=== PATIENT | male | born 1965 | race Two or more races ===

== ENCOUNTER → 2017-09-29 | Outpatient (REF) | payer OTHER ==
[2017-09-29 11:50] LABS: MEAN CORPUSCULAR HEMOGLOBIN 30.4 pg (27.0-33.0); MEAN CORPUSCULAR HGB CONC 33.5 g/dl (32.0-36.5); MEAN CORPUSCULAR VOLUME 90.7 fl (80.0-96.0); PLATELET COUNT, AUTOMATED 269 10^3/uL (150-450); RED CELL DISTRIBUTION WIDTH 11.9 % (11.5-14.5); WHITE BLOOD COUNT 8.3 10^3/uL (4.0-10.0)
[2017-09-29 13:05] LABS: ALBUMIN 3.9 GM/DL (3.2-5.2); ALBUMIN/GLOBULIN RATIO 1.08 (1.00-1.93); ALKALINE PHOSPHATASE 104 U/L (45-117); ALT/SGPT 22 U/L (12-78); ANION GAP 7 MEQ/L (8-16); AST/SGOT 19 U/L (7-37); BILIRUBIN,TOTAL 0.4 MG/DL (0.2-1.0); BLOOD UREA NITROGEN 15 MG/DL (7-18); CALCIUM LEVEL 9.2 MG/DL (8.5-10.1); CARBON DIOXIDE LEVEL 27 MEQ/L (21-32); CHLORIDE LEVEL 106 MEQ/L (98-107); CHOLESTEROL LEVEL 193 MG/DL (<200); CREATININE FOR GFR 0.97 MG/DL (0.70-1.30); GLOMERULAR FILTRATION RATE > 60.0 (>56); GLUCOSE, FASTING 75 MG/DL (70-105); POTASSIUM SERUM 4.5 MEQ/L (3.5-5.1); SODIUM LEVEL 140 MEQ/L (136-145); TOTAL PROTEIN 7.5 GM/DL (6.4-8.2); TRIGLYCERIDES LEVEL 165 MG/DL (<150)
== END ==
LOC: M SFHCPLAZ 10:22
PROVIDERS: ATTEND Nurse Practitioner Adult Health
DX: Z00.00 Encounter for general adult medical examination without abnormal findings (principal); Z12.5 Encounter for screening for malignant neoplasm of prostate

== ENCOUNTER → 2017-10-24 | Outpatient (CLI) | payer OTHER ==
[~2017-10-24] MED LIST: PROHANCE 279.3MG/ML 15ML VIAL (A9576) As Ordered
== END ==
LOC: M RAD 16:21
DX: G44.209 Tension-type headache, unspecified, not intractable (principal)
CPT/HCPCS: A9576

== ENCOUNTER 2018-02-15 12:34 | Emergency (ER) | payer OTHER, SELFPAY ==
[2018-02-15] MEDS: ONDANSETRON 4MG/2ML VIAL (J2405) IV ×3 (13:15)
[2018-02-15 13:24] LABS: BASO % 0.6 % (0.0-1.0); EOS # 0.2 10^3/uL (0.0-0.50); HEMATOCRIT 49.5 % (42.0-52.0); HEMOGLOBIN 16.9 g/dl (13.5-17.5); IMMATURE GRANULOCYTE % 0.2 % (0-3.0); LYMPH # 1.7 10^3/uL (1.5-4.5); LYMPH % 25.2 % (24.0-44.0); MEAN CORPUSCULAR HEMOGLOBIN 30.3 pg (27.0-33.0); MEAN CORPUSCULAR HGB CONC 34.1 g/dl (32.0-36.5); MEAN CORPUSCULAR VOLUME 88.9 fl (80.0-96.0); MONO # 0.3 10^3/uL (0.0-0.8); MONO % 4.8 % (0.0-5.0); NEUTROPHILS # 4.4 10^3/uL (1.8-7.7); NEUTROPHILS % 66.2 % (36.0-66.0); PLATELET COUNT, AUTOMATED 232 10^3/uL (150-450); RED BLOOD COUNT 5.57 10^6/uL (4.30-6.10); RED CELL DISTRIBUTION WIDTH 12.1 % (11.5-14.5); WHITE BLOOD COUNT 6.7 10^3/uL (4.0-10.0)
[2018-02-15 13:35] LABS: INR 1.06
[2018-02-15 13:36] LABS: PARTIAL THROMBOPLASTIN TIME 28.8 SECONDS (26.8-37.9)
[2018-02-15 13:53] LABS: ALBUMIN 3.7 GM/DL (3.2-5.2); ALKALINE PHOSPHATASE 202 U/L (45-117); ALT/SGPT 755 U/L (12-78); ANION GAP 6 MEQ/L (8-16); AST/SGOT 368 U/L (7-37); BILIRUBIN,DIRECT 0.3 MG/DL (0.0-0.2); BILIRUBIN,TOTAL 0.9 MG/DL (0.2-1.0); BLOOD UREA NITROGEN 15 MG/DL (7-18); CALCIUM LEVEL 8.6 MG/DL (8.5-10.1); CARBON DIOXIDE LEVEL 28 MEQ/L (21-32); CHLORIDE LEVEL 107 MEQ/L (98-107); CK-MB VALUE MASS < 1.0 NG/ML (<3.6); CPK CREATINE PHOSPHOKINASE 140 U/L (39-308); CREATININE FOR GFR 0.99 MG/DL (0.70-1.30); GLOMERULAR FILTRATION RATE > 60.0 (>56); GLUCOSE, FASTING 145 MG/DL (70-100); LIPASE 255 U/L (73-393); MB/CK RELATIVE INDEX 0.71 (< OR =4); POTASSIUM SERUM 3.8 MEQ/L (3.5-5.1); SODIUM LEVEL 141 MEQ/L (136-145); TOTAL PROTEIN 7.8 GM/DL (6.4-8.2); TROPONIN I < 0.02 NG/ML (< 0.10)
[2018-02-16 10:20] LABS: HEPATITIS B SURFACE ANTIGEN NEGATIVE (NEGATIVE)
[2018-02-16 10:46] LABS: HEPATITIS C VIRUS ABY INDEX < 0.0 INDEX (<0.8)
[2018-02-16 10:47] LABS: HEPATITIS B CORE ANTIBODY IGM NEGATIVE (NEGATIVE)
[2018-02-16 10:49] LABS: HEPATITIS A ANTIBODY IGM NEGATIVE (NEGATIVE)
== END 2018-02-15 16:54 | disposition home or self-care (01) ==
LOC: M ED 12:34
DX: K75.9 Inflammatory liver disease, unspecified (principal); R10.13 Epigastric pain; R91.8 Other nonspecific abnormal finding of lung field; F17.200 Nicotine dependence, unspecified, uncomplicated; Z82.49 Family history of ischemic heart disease and other diseases of the circulatory system
CPT/HCPCS: 71046

== ENCOUNTER → 2018-02-19 | Outpatient (REF) | payer SELFPAY, OTHER ==
[2018-02-19 13:07] LABS: ALBUMIN 4.1 GM/DL (3.2-5.2); ALBUMIN/GLOBULIN RATIO 1.17 (1.00-1.93); ALKALINE PHOSPHATASE 153 U/L (45-117); ALT/SGPT 282 U/L (12-78); ANION GAP 5 MEQ/L (8-16); AST/SGOT 73 U/L (7-37); BILIRUBIN,TOTAL 0.5 MG/DL (0.2-1.0); BLOOD UREA NITROGEN 19 MG/DL (7-18); CARBON DIOXIDE LEVEL 27 MEQ/L (21-32); CHLORIDE LEVEL 107 MEQ/L (98-107); CREATININE FOR GFR 0.97 MG/DL (0.70-1.30); GLOMERULAR FILTRATION RATE > 60.0 (>56); GLUCOSE, FASTING 82 MG/DL (70-100); POTASSIUM SERUM 4.2 MEQ/L (3.5-5.1); SODIUM LEVEL 139 MEQ/L (136-145); TOTAL PROTEIN 7.6 GM/DL (6.4-8.2)
== END ==
LOC: M SFHCPLAZ 08:45
DX: R74.0 Nonspecific elevation of levels of transaminase and lactic acid dehydrogenase [LDH] (principal)
CPT/HCPCS: 80053

== ENCOUNTER → 2018-02-26 | Outpatient (CLI) | payer SELFPAY, OTHER ==
[2018-02-26 09:55] LABS: ALBUMIN 3.7 GM/DL (3.2-5.2); ALBUMIN/GLOBULIN RATIO 1.09 (1.00-1.93); ALKALINE PHOSPHATASE 112 U/L (45-117); ALT/SGPT 62 U/L (12-78); ANION GAP 6 MEQ/L (8-16); AST/SGOT 24 U/L (7-37); BILIRUBIN,TOTAL 0.6 MG/DL (0.2-1.0); BLOOD UREA NITROGEN 16 MG/DL (7-18); CALCIUM LEVEL 8.6 MG/DL (8.5-10.1); CARBON DIOXIDE LEVEL 28 MEQ/L (21-32); CHLORIDE LEVEL 108 MEQ/L (98-107); CREATININE FOR GFR 1.07 MG/DL (0.70-1.30); GLOMERULAR FILTRATION RATE > 60.0 (>56); GLUCOSE, FASTING 152 MG/DL (70-100); POTASSIUM SERUM 3.7 MEQ/L (3.5-5.1); SODIUM LEVEL 142 MEQ/L (136-145); TOTAL PROTEIN 7.1 GM/DL (6.4-8.2)
== END ==
LOC: M LAB 08:41
DX: R74.0 Nonspecific elevation of levels of transaminase and lactic acid dehydrogenase [LDH] (principal)
CPT/HCPCS: 80053

== ENCOUNTER 2019-11-23 15:04 | Emergency (ER) | payer SELFPAY ==
[~2019-11-23] VITALS: Ht 177.8 cm; Wt 91.6 kg
[2019-11-23] MEDS ORDERED: ibuprofen 800 (15:17)
[2019-11-23 15:51] LABS: BASO % 0.4 % (0.0-1.0); EOS # 0.1 10^3/uL (0.0-0.5); EOS % 1.3 % (0.0-3.0); HEMATOCRIT 47.7 % (42.0-52.0); HEMOGLOBIN 15.8 g/dl (13.5-17.5); LYMPH # 1.3 10^3/uL (1.5-5.0); LYMPH % 14.7 % (24.0-44.0); MEAN CORPUSCULAR HEMOGLOBIN 30.3 pg (27.0-33.0); MEAN CORPUSCULAR HGB CONC 33.1 g/dl (32.0-36.5); MEAN CORPUSCULAR VOLUME 91.6 fl (80.0-96.0); MONO # 0.7 10^3/uL (0.0-0.8); NEUTROPHILS # 6.4 10^3/uL (1.5-8.5); NEUTROPHILS % 75.2 % (36.0-66.0); PLATELET COUNT, AUTOMATED 196 10^3/uL (150-450); RED BLOOD COUNT 5.21 10^6/uL (4.30-6.10); WHITE BLOOD COUNT 8.5 10^3/uL (4.0-10.0)
[2019-11-23 16:23] LABS: ALBUMIN 3.6 GM/DL (3.2-5.2); ALT/SGPT 18 U/L (12-78); BILIRUBIN,DIRECT 0.1 MG/DL (0.0-0.2); BILIRUBIN,TOTAL 0.6 MG/DL (0.2-1.0); BLOOD UREA NITROGEN 15 MG/DL (7-18); CALCIUM LEVEL 8.7 MG/DL (8.5-10.1); CARBON DIOXIDE LEVEL 29 MEQ/L (21-32); CHLORIDE LEVEL 108 MEQ/L (98-107); CREATININE FOR GFR 1.05 MG/DL (0.70-1.30); GLOMERULAR FILTRATION RATE > 60.0 (>56); GLUCOSE, FASTING 96 MG/DL (70-100); LIPASE 583 U/L (73-393); POTASSIUM SERUM 4.1 MEQ/L (3.5-5.1); SODIUM LEVEL 142 MEQ/L (136-145); TOTAL PROTEIN 7.1 GM/DL (6.4-8.2)
[2019-11-23] MEDS ORDERED: NS 1,000 ML IV ONE (19:15)
[2019-11-23] MEDS ORDERED: ONDANSETRON 4MG/2ML VIAL (J2405) IV ONE (19:15)
[2019-11-23] MEDS ORDERED: MORPHINE 4 MG/ML 1ML VIAL/SYRINGE (J2270) IV ONE (19:15)
--- NOTE | 2019-11-23 20:37 | REPVR ---
PROCEDURE INFORMATION: Exam: CT Abdomen And Pelvis Without Contrast Exam date and time: 11/23/2019 7:30 PM Age: 54 years old Clinical indication: Abdominal pain; Localized; Right lower quadrant (rlq); Additional info: Rlq pain appi vs calc TECHNIQUE: Imaging protocol: Computed tomography of the abdomen and pelvis without contrast. Radiation optimization: All CT scans at this facility use at least one of these dose optimization techniques: automated exposure control; mA and/or kV adjustment per patient size (includes targeted exams where dose is matched to clinical indication); or iterative reconstruction. COMPARISON: GALLBLADDER US 02/15/2018 1:44 PM FINDINGS: Liver: There are no focal liver lesions present. Gallbladder and bile ducts: There is a 4 mm stone in the gallbladder neck. Pancreas: The pancreas is normal. Spleen: The spleen is normal. Adrenals: The adrenal glands are normal. Kidneys and ureters: The kidneys are normal. Stomach and bowel: There is no evidence of intestinal obstruction. Diverticulosis throughout the colon with inflammation surrounding the cecum and ascending colon which may be due to diverticulitis. There is stranding in the adjacent mesentery. Appendix: A normal appendix is identified. Intraperitoneal space: See Stomach And Bowel Finding. Vasculature: There is no evidence of an abdominal aortic aneurysm. The vasculature demonstrates diffuse mild atherosclerotic calcification. Lymph nodes: Unremarkable. No enlarged lymph nodes. Bladder: The bladder is unremarkable. Reproductive: Unremarkable as visualized. Bones/joints: Unremarkable. No acute fracture. Soft tissues: Fat containing left inguinal hernia. IMPRESSION: 1. Inflammation surrounding the diverticula in the proximal ascending colon and cecal region most likely due to diverticulitis however underlying carcinoma is not excluded therefore suggest follow-up exam. There are small adjacent mesenteric lymph nodes measuring up to 1 cm. There is no associated abscess or perforation. 2. There is a 4 mm stone in the gallbladder neck. Electronically signed by: Lisa Fairbanks On 11/23/2019 20:30:24 PM
[2019-11-23] MEDS ORDERED: CIPR-249 PO (20:53)
[2019-11-23] MEDS ORDERED: FLAG500T PO (20:53)
[2019-11-23] MEDS ORDERED: NORC1TAB7 PO (20:53)
[2019-11-23] MEDS ORDERED: metroNIDAZOLE (FLAGYL) 500 MG TAB PO ONE (21:00)
[2019-11-23] MEDS ORDERED: NORCO 5/325MG TABLET (BULK FOR ED) PO ONE (21:00)
[2019-11-23] MEDS ORDERED: CIPROFLOXACIN 500 MG TAB PO ONE (21:00)
[2019-11-23 21:15] VITALS: BP 148/78
--- NOTE | 2019-11-25 19:14 | ED PDOC ---
Post-Departure Follow-Up [facility] faxed formal report of ct abd/p for fu Tanisha Pugh MD Nov 25, 2019 19:14
== END 2019-11-23 21:16 | disposition home or self-care (01) ==
LOC: M ED 15:04
DX: K57.32 Diverticulitis of large intestine without perforation or abscess without bleeding (principal); N39.0 Urinary tract infection, site not specified; F17.200 Nicotine dependence, unspecified, uncomplicated

== ENCOUNTER 2020-12-14 11:10 | Emergency (ER) | payer OTHER, SELFPAY ==
[~2020-12-14] VITALS: Ht 180.3 cm; Wt 93.2 kg
[~2020-12-14 11:10] MED LIST changes: +CIPR-249 PO; +FLAG500T PO; +NORC1TAB7 PO; -PROHANCE 279.3MG/ML 15ML VIAL (A9576) As Ordered; +ibuprofen 800
[2020-12-14] MEDS ORDERED: LOSA100T50 PO (11:28)
[2020-12-14] MEDS ORDERED: AMLO1TAB24 PO (11:28)
--- NOTE | 2020-12-14 11:39 | REP ---
INDICATION: CHEST PAIN COMPARISON: 02/15/2018 TECHNIQUE: Portable AP view of the chest FINDINGS: The mediastinum and cardiac silhouette are stable and within normal limits for portable technique. The lung brandon are clear without acute consolidation, effusion, or pneumothorax. Skeletal structures are intact. IMPRESSION: No acute cardiopulmonary process appreciated. <Electronically signed by Feliz Mclaughlin > 12/14/20 [id number]
[2020-12-14] MEDS ORDERED: NITROGLYCERIN 0.3 MG SUBL TAB SL PRN (11:50)
[2020-12-14] MEDS ORDERED: ASPIRIN 81 MG CHEW TABLET PO ONE (11:50)
[2020-12-14] MEDS ORDERED: NITROGLYCERIN 0.4 MG SUBL TABLET As Ordered ONE (12:00)
[2020-12-14] MEDS ORDERED: NITROGLYCERIN 0.4 MG SUBL TABLET SL STA (12:13)
[2020-12-14 12:15] VITALS: BP 188/106
[2020-12-14 12:17] LABS: BASO # 0.1 10^3/uL (0.0-0.2); BASO % 0.7 % (0.0-1.0); EOS # 0.1 10^3/uL (0.0-0.5); EOS % 1.4 % (0.0-3.0); HEMATOCRIT 50.1 % (42.0-52.0); HEMOGLOBIN 16.7 g/dl (13.5-17.5); LYMPH # 1.9 10^3/uL (1.5-5.0); LYMPH % 26.7 % (24.0-44.0); MEAN CORPUSCULAR HEMOGLOBIN 30.2 pg (27.0-33.0); MEAN CORPUSCULAR HGB CONC 33.3 g/dl (32.0-36.5); MEAN CORPUSCULAR VOLUME 90.6 fl (80.0-96.0); MONO # 0.5 10^3/uL (0.0-0.8); MONO % 7.1 % (2.0-8.0); NEUTROPHILS # 4.5 10^3/uL (1.5-8.5); NEUTROPHILS % 63.8 % (36.0-66.0); PLATELET COUNT, AUTOMATED 243 10^3/uL (150-450); RED BLOOD COUNT 5.53 10^6/uL (4.30-6.10)
[2020-12-14 12:34] LABS: INR 0.99; PARTIAL THROMBOPLASTIN TIME 29.9 SECONDS (24.2-38.5); PROTHROMBIN TIME 13.3 SECONDS (12.5-14.3)
[2020-12-14] MEDS ORDERED: MORPHINE 2 MG/ML 1ML VIAL (J2270) As Ordered ONE (12:34)
[2020-12-14] MEDS: MORPHINE 2 MG/ML 1ML VIAL (J2270) IV PRN ×2 (12:36→14:43)
[2020-12-14 12:48] LABS: ALT/SGPT 33 U/L (12-78); BILIRUBIN,DIRECT < 0.1 MG/DL (0.0-0.2); BILIRUBIN,TOTAL 0.5 MG/DL (0.2-1.0); BLOOD UREA NITROGEN 20 MG/DL (7-18); CARBON DIOXIDE LEVEL 25 MEQ/L (21-32); CHLORIDE LEVEL 105 MEQ/L (98-107); CREATININE FOR GFR 1.06 MG/DL (0.70-1.30); FREE T4 0.95 NG/DL (0.76-1.46); GLOMERULAR FILTRATION RATE > 60.0 (>56); GLUCOSE, FASTING 97 MG/DL (70-100); LIPASE 106 U/L (73-393); POTASSIUM SERUM 4.8 MEQ/L (3.5-5.1); SODIUM LEVEL 136 MEQ/L (136-145); TOTAL PROTEIN 7.7 GM/DL (6.4-8.2)
[2020-12-14] MEDS ORDERED: ISOVUE-370 76% 100ML VIAL As Ordered ONE (12:58)
--- NOTE | 2020-12-14 13:17 | REP ---
INDICATION: chest pain COMPARISON: None. TECHNIQUE: Axial contrast enhanced images from the thoracic inlet to the upper abdomen using pulmonary embolus technique with multiplanar re-formations. 75 ml Isovue 370 intravenous contrast material administered without complication. This CT examination was performed using the following dose reduction techniques: Automated exposure control, adjustment of mA and/or kv according to the patient's size, and use of iterative reconstruction technique. FINDINGS: Satisfactory enhancement of the pulmonary vasculature is achieved and no filling defects are identified to suggest pulmonary embolus. Further evaluation of the mediastinum demonstrates normal thoracic aorta, heart and pericardium. The bilateral lung brandon demonstrate posterior basilar dependent changes along with few calcified nodules. No acute consolidation, effusion, or pneumothorax. Tracheobronchial tree is patent. No nodule or mass lesion is identified. No adenopathy noted. Surrounding musculoskeletal structures intact IMPRESSION: No evidence for pulmonary embolus. No acute mediastinal or pleural parenchymal process. Evidence for prior granulomatous disease. <Electronically signed by Feliz Mclaughlin > 12/14/20 [id number]
[2020-12-14 17:31] VITALS: BP 149/89
--- NOTE | 2020-12-15 08:04 | ECGEPIP ---
[facility] - ED Test Date: 2020-12-14 Pat Name: CHARITY ESCOBAR Department: Room: - Gender: Male Staff Sonographer: MOIRA : 1965 Requested By: Tanisha Cope Order Number: [id number] Reading MD: Aure Jimenez Measurements Intervals [place] Rate: 80 P: 27 ID: [id number] QRS: 46 QRSD: 90 T: 33 QT: 368 QTc: 424 Interpretive Statements Normal sinus rhythm NSTTW abnormalities increased rate 02/15/18 Electronically Signed on 12-15-2020 8:04:33 EST by Aure Jimenez
--- NOTE | 2020-12-15 08:15 | ECGEPIP ---
[facility] - ED Test Date: 2020-12-14 Pat Name: CHARITY ESCOBAR Department: Room: - Gender: Male Rehabilitation Assistant: MOIRA : 1965 Requested By: Tanisha Cope Order Number: [id number] Reading MD: Aure Jimenez Measurements Intervals [place] Rate: 59 P: 11 RI: 172 QRS: 42 QRSD: 86 T: 36 QT: 414 QTc: 409 Interpretive Statements Sinus bradycardia NSTTW abnormalities decreased rate 12/14/20 Electronically Signed on 12-15-2020 8:14:36 EST by Aure Jimenez
== END 2020-12-14 18:02 | disposition home or self-care (01) ==
LOC: M ED 11:10
DX: R07.9 Chest pain, unspecified (principal); I10 Essential (primary) hypertension; F17.200 Nicotine dependence, unspecified, uncomplicated; Z79.899 Other long term (current) drug therapy
CPT/HCPCS: 71045; 71275; 80048; 80076; 83690; 84439; 84443; 85025; 85610; 85730; 93005; 93041; 94760; 96374; 96376; 99285; J2270; Q9967